=== PATIENT | male | born 1985 | race Caucasian/White ===

== ENCOUNTER 2016-09-21 16:55 | Outpatient (RCR) | payer OTHER ==
[~2016-09-21 16:55] MED LIST: BUPR150T7 PO; DOCU-143 PO; HYDR-3812 PO
--- OUTSIDE RECORDS SUMMARY | 2016-09-21 16:58 | XMS REPORT | Continuity of Care Document ---
Author Author [facility] Organization [facility] Address Unknown Phone Unavailable Allergies Active Description Code Type Severity Reaction Onset Reported/Identified Relationship to Patient Clinical Status Yes No Known Drug Allergies [id number] Drug Allergy Unknown N/ A 10/14/2015 Medications Problems Date Dx Coded Attending Type Code Diagnosis Diagnosed By 10/14/2015 Ot K42.9 UMBILICAL HERNIA WITHOUT OBSTRUCTION OR 10/14/2015 Ot Z01.812 ENCOUNTER FOR PREPROCEDURAL LABORATORY E 10/14/2015 Ot Z11.2 ENCOUNTER FOR SCREENING FOR OTHER BACTER 10/21/2015 GRACE GARNER DO Ot K42.9 UMBILICAL HERNIA WITHOUT OBSTRUCTION OR 10/22/2015 GRACE GARNER DO Ot K42.9 10/22/2015 GRACE GARNER DO Ot K42.9 10/23/2015 GRACE GARNER DO Ot K42.9 Procedures Results Encounters ACCT No. Visit Date/Time Discharge Status Pt. Type Provider Facility Loc./Unit Complaint [id number] 10/21/2015 08:00:00 2015 16:30:00 DIS Outpatient GRACE GARNER DO [facility] SDC UMBILICA HERNIA [id number] 09/21/2016 16:55:00 ACT Outpatient KYA LÓPEZ DO [facility] LAB INFERTILITY [id number] 10/14/2015 07:45:00 Document Registration
== END 2016-09-22 08:25 | disposition home or self-care (01) ==
LOC: LAB 16:55
PROVIDERS: ATTEND Family Medicine
DX: N46.9 Male infertility, unspecified (principal)
CPT/HCPCS: 89320

== ENCOUNTER 2023-03-23 19:41 | Emergency (ER) | payer OTHER ==
[~2023-03-23] VITALS: Ht 175.2 cm; Wt 104.3 kg
[~2023-03-23 19:41] MED LIST changes: +ACHD5005 PO; +BUPR150T24 PO; -BUPR150T7 PO; -HYDR-3812 PO
--- NOTE | 2023-03-23 20:24 | ED Lower Extremity ---
General Chief Complaint: Lower Extremity Stated Complaint: LEFT LEG PAIN Nursing Triage Note: PT ARRIVED POV WITH CC OF LEFT UPPER CALF PAIN. PT STATES THAT HE WAS RUNNING DURING FLAG FOOTBALL 20 MINUTES AGO AND FELT A KICK IN THE LEFT CALF AND THEN A "POP". 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 Pt states that he was playing flag football when he felt a pop in his left calf immediately after turning to sprint from a stationary position. States it felt like "someone kicked him in his calf". Immediately after hearing the pop, pt felt 8/10 throbbing pain in his L calf and was unable to bear weight on his leg. In room, pt states that pain is a an 8/10 at rest and a 10/10 with movement. Pt characterizes the pain as "throbbing ball" in L calf that now is starting to feel "tight". Pt denies any loss of sensation, recent/past injuries to leg, leg giving out, and loss of sensation. Denies having taken anything for pain prior to arrival. Onset: just prior to arrival Severity: mild Pain/Injury Location: left leg Method of Injury: other (sprinting from stationary position) Modifying Factors: Improves With Movement (exacerbates), Improves With Rest (improves) (TC SANCHEZ) Allergies and Home Medications Allergies Coded Allergies: No Known Drug Allergies (Unverified , 10/14/15) Patient Home Medication List Home Medication List Reviewed: Yes (TC SANCHEZ) Home Medication List Reviewed: Yes (LANE BRITTON MD) Bupropion HCl (Bupropion Xl) 150 Mg Tab.er.24h, 150 MG PO BID, (Reported) Entered as Reported by: ASHLEY THURSTON on 10/14/15 0847 Docusate Sodium (Colace) 100 Mg Capsule, 100 MG PO BID Prescribed by: GRACE GARNER on 10/21/15 1044 Hydrocodone Bit/Acetaminophen (Lortab 5 Mg Tablet) 1 Each Tablet, 1 TAB PO Q4H PRN Prescribed by: GRACE GARNER on 10/21/15 1044 Review of Systems Constitutional: no symptoms reported EENTM: no symptoms reported Respiratory: no symptoms reported Cardiovascular: no symptoms reported Gastrointestinal: no symptoms reported Genitourinary: no symptoms reported Musculoskeletal: No joint pain; muscle pain (L calf), muscle weakness (L calf) Skin: no symptoms reported Psychiatric/Neurological: No Symptoms Reported (TC SANCHEZ) All Other Systems Reviewed Negative Unless Noted: Yes (TC SANCHEZ) Past Nfaafgz-Bkusuy-Cphvqt Hx Patient Social History Tobacco Use?: Yes (chew) Substance use?: No Alcohol Use?: Yes Alcohol Frequency: Once in a while (TC SANCHEZ) Past Medical History Surgery/Hospitalization HX: HTN Surgeries: Yes Abdominal (hernia repairx2) Respiratory: No Cardiac: Yes Hypertension Neurological: Yes Headaches /Migraines Genitourinary: No Gastrointestinal: No Musculoskeletal: Yes Arthritis (b/l achilles) Endocrine: No HEENT: No Cancer: No Psychosocial: Yes Anxiety, Depression Integumentary: No (TC SANCHEZ) Family Medical History No Pertinent Family Hx (TC SANCHEZ) Physical Exam Vital Signs Vital Signs - First Documented 03/23/23 03/23/23 19:46 20:49 Pulse 92 Resp 16 B/P (MAP) 151/105 (120) Pulse Ox 96 O2 Delivery Room Air (LANE BRITTON MD) Vital Signs Capillary Refill : (TC SANCHEZ) Height, Weight, BMI Height: 5'9.00" Weight: 211lbs. 0.0oz. 95.875148to; 33.00 BMI Method: General Appearance: WD/WN, no apparent distress HEENT: PERRL/EOMI Cardiovascular: normal peripheral pulses, regular rate, rhythm, no murmur Respiratory: lungs clear, normal breath sounds, no respiratory distress, no accessory muscle use Gastrointestinal: normal bowel sounds, non tender, soft Hips: bilateral hip non-tender, bilateral hip normal inspection, bilateral hip normal range of motion Legs: right leg non-tender, right leg normal inspection, right leg normal range of motion; left leg limited range of motion (with dorsiflexion and plantarflexion), left leg pain (with dorsiflexion and plantarflexion), left leg other (Barajas test negative) Knees: bilateral knee non-tender, bilateral knee normal inspection, bilateral knee normal range of motion Ankles: bilateral ankle non-tender, bilateral ankle normal inspection; left ankle limited range of motion (secondary to pain in calf with dorsiflexion and plantarflexion) Feet: bilateral foot non-tender, bilateral foot normal inspection, bilateral foot normal range of motion Neurologic/Tendon: normal sensation, normal motor functions Neurologic/Psychiatric: alert, normal mood/affect, oriented x 3 Skin: normal color, warm/dry Lymphatic: no adenopathy (TC SANCHEZ) Progress/Results/Core Measures Results/Orders Vital Signs/I&O 03/23/23 03/23/23 19:46 20:49 Pulse 92 78 Resp 16 B/P (MAP) 151/105 (120) 145/98 Pulse Ox 96 99 O2 Delivery Room Air Room Air (LANE BRITTON MD) Blood Pressure Mean: 120 Progress Progress Note : Time: 20:32 Progress Note Patient seen and examined by me. I have reviewed and agree with the medical student's documentation. Eval today includes physical exam. Pertinent physical exam findings include - WDWn male in NAD. He has tenderness to palpation over the prox gastrocnemius on the left. Barajas's test neg. No tenderness around the achilles. He has intact sensation and pulses to the foot. No ecchymoses to the calf. No concern for compartment syndrome. No sink wounds. Knee exam benign. Ddx based on h&p includes gastroc tear Clinically patient has calf muscle tear - he is NVI. COnsideration for tib/fib xray however h&p did not support the need. Recommended ice and compression, NSAIDs and follow up with Ortho. Return precautions provided in both verbal and written format. Patient verbalizes understanding. Contact info for Dr Barrett (Ortho) provided. (LANE BRITTON MD) Departure Impression Primary Impression: Gastrocnemius muscle tear Qualified Codes: S86.112A - Strain of other muscle(s) and tendon(s) of posterior muscle group at lower leg level, left leg, initial encounter Disposition: 01 HOME, SELF-CARE Condition: Stable Departure-Patient Inst. Decision time for Depature: 20:34 ([address] BRITTON MD) Referrals: [facility] (PCP/Family) Primary Care Physician EVAN BARRETT MD Add. Discharge Instructions: Elevate the leg while at rest to keep swelling down. Edwardo wrap the calf - compression will help with pain/swelling. You can also buy a calf sleeve for compression. Ibuprofen 3 pills which is 600mg every 6 hours as needed for pain. Always take Ibuprofen with food. Use the crutches to bear weight as tolerated. No running/exertional activities until cleared by Ortho. Please call Dr Barrett's office for follow up appointment for further evaluation of possible tear in the calf muscles and discuss rehab/return to full duty. Work/School Note: Work Release Form Date Seen in the Emergency Department: Mar 23, 2023 Return to Work: Mar 24, 2023 Restrictions: No PE-Until Released Other Restrictions Listed Below: Light Duty until cleared by Ortho Verification and Attestation of Medical Student E/M Service A medical student performed and documented this service in my presence. I reviewed and verified all information documented by the medical student and made modifications to such information, when appropriate. I personally performed the physical exam and medical decision making. Lane Britton, Mar 23, 2023,20:40 (L[address] BRITTON MD) Copy Copies To 1: THAD BLACKWELL DO Copies To 2: EVAN BARRETT MD, TAYLOR Mar 23, 2023 20:[address] BRITTON MD Mar 23, 2023 20:37
[2023-03-23 20:49] VITALS: BP 145/98
== END 2023-03-23 20:49 | disposition home or self-care (01) ==
LOC: EDUNIT# 19:41 → ER 19:42
DX: S86.922A Laceration of unspecified muscle(s) and tendon(s) at lower leg level, left leg, initial encounter (principal); X50.1XXA Overexertion from prolonged static or awkward postures, initial encounter; Y93.61 Activity, american tackle football
CPT/HCPCS: 99283